=== PATIENT | female | born 1995 | race Caucasian/White ===

== ENCOUNTER 2019-09-14 07:21 | Inpatient (IN) | payer OTHER ==
[2019-09-13 11:26] VITALS: BMI 29.2
[2019-09-14 08:02] LABS: #Basophils 0.1 thou/uL (0.0-0.2); #Eosinphils 0.2 thou/uL (0.0-0.7); #Lymphocytes 2.9 thou/uL (1.20-3.40); #Monocytes 0.5 thou/uL (0.11-0.59); #Neutrophils 5.9 thou/uL (1.40-6.50); %Basophils 0.9 % (0.0-1.0); %Lymphocytes 30.1 % (21.0-51.0); %Monocytes 5.3 % (0.0-10.0); %Neutrophils 61.8 % (42.0-75.0); Hemoglobin 13.2 g/dL (12.0-16.0); Mean Corpuscular HGB CONC 34.5 g/dL (32.0-36.0); Mean Corpuscular Hemoglobin 28.1 pg (27.0-31.0); Mean Corpuscular Volume 81.5 fL (78.0-98.0); Platelet Count 217 thou/uL (130-400); Red Blood Cell (RBC) Count 4.69 mill/uL (4.20-5.40); White Blood Cell (WBC) Count 9.6 thou/uL (4.8-10.8)
[2019-09-14 08:11] LABS: BHCG - Serum Negative (NEGATIVE); Pregs Control Background? CLEAR/WHITE (CLR/WHITE); Pregs Control Bar Appear? YES (CONTROL BAR)
[2019-09-14 08:15] LABS: Anion Gap 11 mmol/L (10-20); BUN (Urea Nitrogen) 10 mg/dL (7.0-18.7); Calc. Creatinine Clearance 143 mL/min (70-130); Calcium 9.6 mg/dL (7.8-10.44); Carbon Dioxide 23 mmol/L (22-29); Chloride 107 mmol/L (98-107); Estimated GFR-MDRD Greater than 90; Glucose 95 mg/dL (70-105); Potassium 4.3 mmol/L (3.5-5.1); Sodium 137 mmol/L (136-145)
[2019-09-14] MEDS ORDERED: Sodium Chloride 0.9% 10 ML ONE (08:44)
[2019-09-14] MEDS ORDERED: Fentanyl 100 MCG/2 ML VIAL ONE ×4 (08:54→11:45)
[2019-09-14] MEDS ORDERED: HYDROmorphone 2 MG/ML VIAL ONE (09:52)
[2019-09-14] MEDS ORDERED: Meperidine HCl/PF 25 MG/ML VIAL SLOW IVP PRN (10:45)
[2019-09-14] MEDS ORDERED: Morphine Sulfate 2 MG/ML SYRINGE SLOW IVP PRN (10:45)
[2019-09-14] MEDS ORDERED: PACU-Morphine 4MG/ML VIAL SLOW IVP PRN (10:45)
[2019-09-14] MEDS ORDERED: Ondansetron HCl/PF 4 MG/2 ML Vial IVP PRN (10:45)
[2019-09-14] MEDS ORDERED: Promethazine HCl 25 MG/ML VIAL SLOW IVP PRN (10:45)
[2019-09-14] MEDS ORDERED: Promethazine HCl 25 MG/ML VIAL IM PRN ×2 (10:45→13:25)
[2019-09-14] MEDS ORDERED: HYDROmorphone 2 MG/ML VIAL SLOW IVP PRN (10:45)
[2019-09-14] MEDS ORDERED: Promethazine HCl 25 MG/ML VIAL ONE (10:55)
[2019-09-14] MEDS ORDERED: Promethazine 25 MG TAB PO PRN (13:25)
[2019-09-14] MEDS ORDERED: HYDROcodone/Acetaminophen 10/325 mg Tablet PO PRN (13:25)
[2019-09-14] MEDS ORDERED: Morphine 4 MG/ML VIAL SLOW IVP PRN (13:25)
[2019-09-14] MEDS ORDERED: Promethazine HCl 12.5 MG SUPP PR PRN (13:25)
[2019-09-14] MEDS ORDERED: Ondansetron PF 4 MG/2 ML Vial IM PRN (13:25)
[2019-09-14] MEDS ORDERED: traMADol HCl 50 MG TAB PO PRN ×2 (13:25)
[2019-09-14] MEDS ORDERED: Milk Of Magnesia 30 ML UDCUP PO PRN (13:25)
[2019-09-14] MEDS ORDERED: Mag-Al 1200 mg/1200 mg/30 ML UDCUP PO PRN (13:25)
[2019-09-14] MEDS ORDERED: Morphine 2 MG/ML SYRINGE SLOW IVP PRN (13:27)
[2019-09-14] MEDS: HYDROcodone/Acetaminophen 10/325 mg Tablet PO PRN ×3 (14:08→23:04)
--- NOTE | 2019-09-14 16:01 | OP ---
DATE OF PROCEDURE: 09/14/2019 HARNESS BUILDER: Chloé Jolley PA-C PROCEDURES PERFORMED: L5-S1 laminectomy, posterolateral arthrodesis, pedicle screw instrumentation, L5-S1, demineralized bone matrix, local morselized autograft. DESCRIPTION OF PROCEDURE: The patient was brought to the operating room and intubated. She was rolled in a prone position on gel-filled chest rolls. An incision was made exposing L5 and S1. Level was confirmed by x-ray. We performed modest bilateral L5-S1 laminectomies, placed pedicle screws at L5 and S1 using lateral fluoroscopic guidance and confirmed the positioning of the screws with rotational x-ray. Adam was then secured between the screws, connected by nuts, which were final tightened. The wound was then extensively irrigated and MAC hemostasis was secured. A combination of demineralized bone matrix and local morselized autograft were laid over the lamina on posterolateral surfaces for the purpose of arthrodesis. Vancomycin powder was applied and the wound was closed in anatomic layers. Job ID: [id number]
[2019-09-14] MEDS: Sodium Chloride 0.9% 1,000 ML IV SCH (16:51)
[2019-09-14] MEDS: tiZANidine HCl 4 MG TAB PO PRN (16:55)
[2019-09-14] MEDS: CEFAZOLIN 2 GM in Premix Bag 1 BAG IVPB SCH (18:43)
[2019-09-14] MEDS ORDERED: busPIRone HCl 5 MG TAB PO SCH (21:00)
[2019-09-14] MEDS ORDERED: Gabapentin 300 MG CAP PO SCH (21:00)
[2019-09-15] MEDS: CEFAZOLIN 2 GM in Premix Bag 1 BAG IVPB SCH (01:59)
[2019-09-15] MEDS: Sodium Chloride 0.9% 1,000 ML IV SCH (02:10)
[2019-09-15] MEDS: tiZANidine HCl 4 MG TAB PO PRN ×2 (02:46→09:32)
[2019-09-15] MEDS: HYDROcodone/Acetaminophen 10/325 mg Tablet PO PRN ×2 (04:18→07:42)
[2019-09-15 07:59] VITALS: BP 96/57; TEMP 98.7
[2019-09-15] MEDS ORDERED: Gabapentin 400 MG CAP PO SCH (09:00)
--- NOTE | 2019-09-15 15:09 | DIS ---
DATE OF ADMISSION: 09/14/2019 DATE OF DISCHARGE: 09/15/2019 HISTORY AND HOSPITAL COURSE: The patient is a 24-year-old female, recently seen in our office for progressive back pain and found to have spondylolisthesis at L5-S1, bilateral pars defects. The patient underwent L5-S1 decompression and fusion on 09/12/2019. Following the surgery, she was transitioned to the Med/Surg floor, where her pain has been well-controlled with p.o. medications. She is tolerating a regular diet, and she is voiding appropriately. She has ambulated short distances without difficulty in the hallway. On exam this morning, the patient is awake, alert, in no acute distress. She has free active range of motion of all extremities. No focal motor weakness. Incision is clean, dry, and intact. We will plan to dismiss the patient home. I have discussed home care precautions. The patient will be provided with scripts of [place], Zanaflex, and Keflex. Job ID: [id number]
== END 2019-09-15 10:46 | disposition home or self-care (01) | DRG 460 ==
LOC: SURG A 07:21 → 3SE 12:20
PROVIDERS: ADMIT Neurological Surgery; ATTEND Neurological Surgery
PROC: 0SG3071 Fusion of Lumbosacral Joint with Autologous Tissue Substitute, Posterior Approach, Posterior Column, Open Approach (ICD-10-PCS; principal; 2019-09-14)
DX: M43.17 Spondylolisthesis, lumbosacral region (principal); M54.17 Radiculopathy, lumbosacral region; F17.210 Nicotine dependence, cigarettes, uncomplicated; F41.9 Anxiety disorder, unspecified
CPT/HCPCS: 36415; 76000; 80048; 84703; 85025; J0690; J1170; J2550; J3010; J3370; J3490

== ENCOUNTER 2019-09-19 15:25 | Observation (INO) | payer OTHER ==
[2019-09-19] MEDS ORDERED: Fentanyl 100 MCG/2 ML VIAL ONE ×2 (16:17→18:04)
[2019-09-19] MEDS ORDERED: Ondansetron PF 4 MG/2 ML Vial ONE (16:32)
[2019-09-19] MEDS ORDERED: Ondansetron PF 4 MG/2 ML Vial IVP PRN (16:38)
[2019-09-19] MEDS ORDERED: Promethazine HCl 25 MG/ML VIAL IM PRN (16:38)
[2019-09-19] MEDS ORDERED: traMADol HCl 50 MG TAB PO PRN (16:38)
[2019-09-19] MEDS ORDERED: Morphine 2 MG/ML SYRINGE SLOW IVP PRN (16:38)
[2019-09-19] MEDS ORDERED: Milk Of Magnesia 30 ML UDCUP PO PRN (16:38)
[2019-09-19] MEDS ORDERED: tiZANidine HCl 4 MG TAB PO PRN (16:38)
[2019-09-19] MEDS ORDERED: Acetaminophen 325 MG TAB PO PRN (16:38)
[2019-09-19] MEDS ORDERED: HYDROcodone/Acetaminophen 10/325 mg Tablet PO PRN ×2 (16:38)
[2019-09-19] MEDS ORDERED: Promethazine 25 MG TAB PO PRN (16:38)
[2019-09-19] MEDS ORDERED: diphenhydrAMINE 25 MG CAP PO PRN (16:38)
[2019-09-19] MEDS ORDERED: Mag-Al 1200 mg/1200 mg/30 ML UDCUP PO PRN (16:38)
[2019-09-19 16:41] LABS: #Basophils 0.1 thou/uL (0.0-0.2); #Eosinphils 0.3 thou/uL (0.0-0.7); #Lymphocytes 1.9 thou/uL (1.20-3.40); #Monocytes 0.4 thou/uL (0.11-0.59); #Neutrophils 3.9 thou/uL (1.40-6.50); %Basophils 1.1 % (0.0-1.0); %Eosinophils 4.5 % (0.0-10.0); %Lymphocytes 29.5 % (21.0-51.0); %Monocytes 6.1 % (0.0-10.0); Hemoglobin 12.1 g/dL (12.0-16.0); Mean Corpuscular HGB CONC 33.1 g/dL (32.0-36.0); Mean Corpuscular Hemoglobin 27.6 pg (27.0-31.0); Mean Corpuscular Volume 83.4 fL (78.0-98.0); Mean Platelet Volume 8.8 fL (7.4-10.4); Platelet Count 210 thou/uL (130-400); RBC Distribution Width 12.8 % (11.5-14.5); Red Blood Cell (RBC) Count 4.38 mill/uL (4.20-5.40); White Blood Cell (WBC) Count 6.5 thou/uL (4.8-10.8)
[2019-09-19] MEDS ORDERED: Sodium Chloride 0.9% 1,000 ML IV SCH (16:45)
[2019-09-19] MEDS ORDERED: Dexamethasone 20 MG/5 ML VIAL SLOW IVP SCH (17:00)
[2019-09-19 17:03] LABS: ALT (SGPT) 119 U/L (8-55); AST (SGOT) 52 U/L (5-34); Alkaline Phosphatase 131 U/L (40-110); Anion Gap 14 mmol/L (10-20); BUN (Urea Nitrogen) 6 mg/dL (7.0-18.7); Bilirubin, Total 0.4 mg/dL (0.2-1.2); Calc. Creatinine Clearance 0 mL/min (70-130); Calcium 9.8 mg/dL (7.8-10.44); Carbon Dioxide 25 mmol/L (22-29); Chloride 101 mmol/L (98-107); Estimated GFR-MDRD Greater than 90; Glucose 78 mg/dL (70-105); Sodium 136 mmol/L (136-145)
[2019-09-19] MEDS ORDERED: Meperidine HCl/PF 25 MG/ML VIAL SLOW IVP SCH (18:00)
[2019-09-19] MEDS ORDERED: Ketorolac Tromethamine 30 MG/ML VIAL ONE (18:04)
[2019-09-19 18:54] LABS: Bacteria/HPF None Seen HPF (None Seen); Bilirubin Negative (Negative); Blood, Urine Trace (Negative); Clarity Clear (Clear); Glucose, Urine (Dipstick) Normal (Negative); Leukocyte Negative Leu/uL (Negative); Mucous/LPF 1+ LPF (<2+); Nitrite Negative (Negative); Protein, Urine (Dipstick) Negative (Neg-Trace); Urobilinogen Normal mg/dL (Less than 2); WBC/HPF 0-3 HPF (0-3)
[2019-09-19] MEDS ORDERED: Gabapentin 300 MG CAP PO SCH (21:00)
--- NOTE | 2019-09-19 23:17 | HP ---
HISTORY OF PRESENT ILLNESS: The patient is a 24-year-old female, recently evaluated in our office for progressive back and radicular leg pain and found to have L5-S1 degenerative disk disease, who underwent L5-S1 decompression and fusion on 09/14/2019. Following the surgery, she was admitted to the Med/Surg floor and discharged to home the following day. The patient reports that on postoperative day #2 at home, she had been developing increasing back and bilateral leg pain. She also complains of dysesthesias to the bilateral legs, but she reports she has had these in the past and it is difficult to tell if they are significantly changed. She also reports she had episode of incontinence last night and this morning, but has had no episodes of bowel or bladder incontinence since that time. She continues to ambulate with her walker, but reports she is having difficulty getting around secondary to pain. She was seen in [facility], but considering her surgery that was done at our facility, they requested transfer to [facility]. I evaluated the patient in the emergency department and her main complaint is back and bilateral leg pain. She reports she is more comfortable when she lays in the bed, but her pain is significantly increased with sitting up or walking. She has been taking [place] and tizanidine without significant improvement. She denies any fever. Denies any incisional issues. Her white blood count was normal, today 6.4. She did have slight elevation in her sedimentation rate at 62. UA was negative for acute infection. PAST MEDICAL HISTORY: Seizures. PAST SURGICAL HISTORY: L5-S1 decompression and fusion on 09/14/2019. SOCIAL HISTORY: The patient lives at home. She is an occasional smoker. She does not drink or use any drugs. ALLERGIES: SHE IS ALLERGIC TO MORPHINE. PHYSICAL EXAMINATION: VITAL SIGNS: Blood pressure is 98/58, pulse is 87, respiratory rate is 16, the patient is 97% on room air, temperature is 99.1. CONSTITUTIONAL: She is awake, alert. She appears to be in no acute distress, lying comfortably in the bed. HEENT: Head; normocephalic and atraumatic. Eyes; PERRLA. Extraocular movements intact. ENT; oral mucosa is pink, intact, moist. She has normal voice. NECK: Nontender to palpation. Free active range of motion. No meningismus or nuchal rigidity. CARDIAC: Regular rate and rhythm. LUNGS: She has symmetric chest expansion. No evidence of dyspnea. MUSCULOSKELETAL: She has somewhat decreased effort, but does appear to be moving her legs in the bed with a good flexion of bilateral knees. Normal dorsiflexion and plantar flexion of the feet without any significant difficulty. She has normal reflexive throughout. BACK: She is tender diffusely around the incision site. Her incision is clean, dry, and intact. NEUROLOGIC: No focal neurologic deficits are appreciated on my exam. Her sensation is intact to light touch. ASSESSMENT AND PLAN: This is a 24-year-old female, postoperative day #5, status post L5-S1 decompression and fusion, who will be admitted to the Med/Surg floor for intractable postoperative pain. At this point, she appears to be neurologically intact and I do not suspect underlying epidural hematoma or other surgical emergencies. We will admit for pain control and work on mobilizing the patient appropriately. Discussed the patient with Dr. Randall, who is in agreement. Job ID: [id number]
--- NOTE | 2019-09-20 14:50 | DIS ---
DATE OF ADMISSION: 09/19/2019 DATE OF DISCHARGE: 09/19/2019 The patient is a 24-year-old female, who is status post L5-S1 decompression and fusion on 09/14/2019. She was transferred to our ER for worsening back and leg pain. She had also had isolating incidence of incontinence, but this had appeared to have resolved. We did a bladder scan in the emergency department with postvoid residual of only 15 mL. She was able to move her legs well. On my exam, she has normoreflexive. Her incision was clean, dry, and intact. I had plan to keep her overnight for pain control, but after some medicines given in the emergency department, the patient reports she was feeling better and she preferred to go home with her family. She was discharged to home. I discussed home care precautions. We will follow up for her in 2 weeks as planned. Job ID: [id number]
== END 2019-09-19 22:05 | disposition home or self-care (01) ==
LOC: ERS 15:25 → ERHOLD 18:16 → ERS 18:21 → ERHOLD 18:21 → UNDOADMOB 20:15 → ERHOLD 22:05 → UNDOADMOB 22:05 → UNDODISOB 22:05 → INTOOBSV 22:05
PROVIDERS: ADMIT Neurological Surgery; ATTEND Neurological Surgery
DX: G89.18 Other acute postprocedural pain (principal); M54.9 Dorsalgia, unspecified; M79.605 Pain in left leg; M79.604 Pain in right leg; F17.210 Nicotine dependence, cigarettes, uncomplicated; F41.9 Anxiety disorder, unspecified; Z79.899 Other long term (current) drug therapy; Z88.5 Allergy status to narcotic agent; Z98.1 Arthrodesis status
CPT/HCPCS: 80053; 81003; 81015; 85025; 96374; 96375; 96376; J1885; J2405; J3010

== ENCOUNTER 2019-10-05 11:15 | Outpatient (CLI) | payer OTHER ==
--- NOTE | 2019-10-05 11:28 | RAD ---
XR Lumbar Spine 2 Or 3 View HISTORY: Follow-up postsurgery. COMPARISON: None. FINDINGS: Bilateral pedicle screws have been placed at L5-S1 with a vertical connecting rc. Spondylo listhesis of 6 mm is noted. The remainder the vertebral bodies and disc spaces are normal. Overlying surgical alejandra are present. IMPRESSION: Postoperative changes of L5-S1.
== END 2019-10-05 11:16 | disposition home or self-care (01) ==
LOC: TBSIIMAG 11:15
PROVIDERS: ATTEND Neurological Surgery
DX: M54.16 Radiculopathy, lumbar region (principal); Z98.890 Other specified postprocedural states
CPT/HCPCS: 72100